=== PATIENT | female | born 1945 | race Caucasian/White ===

== ENCOUNTER → 2020-07-29 10:16 | Outpatient (CLI) | payer OTHER, SELFPAY ==
--- NOTE | ~2020-07-29 | DEXA_ITS ---
Bone Density Report Name: Elena Geronimo Age: 75 Sex: Female Ethnicity: White Date of : 1945 Indication: osteopenia; parental hip fracture; postmenopausal Referring Provider: GRIS MOMIN Study: Bone densitometry was performed. Exam Date: July 29, 2020 Accession number: [id number] Bone Density: Region BMD T-score Z-score Classification AP Spine (L1-L4) 0.858 -1.7 0.6 Osteopenia Femoral Neck (Left) 0.709 -1.3 0.7 Osteopenia Total Hip (Left) 0.930 -0.1 1.6 Normal Femoral Neck (Right) 0.704 -1.3 0.7 Osteopenia Total Hip (Right) 0.885 -0.5 1.2 Normal Total Hip Mean 0.908 -0.3 1.4 Normal World Health Organization criteria for BMD impression classify patients as: Normal (T-score at or above -1.0), Osteopenia (T-score between -1.0 and -2.5), or Osteoporosis (T-score at or below -2.5). 10-year Fracture Risk(1): Major Osteoporotic Fracture 15% Hip Fracture 4.8% Reported Risk Factors: [place] (), Neck BMD=0.704, BMI=32.5, parental fracture (1) FRAX(R) Version 3.08. Fracture probability calculated for an untreated patient. Fracture probability may be lower if the patient has received treatment. Previous Exams: Region Exam Age BMD T-score BMD Change BMD Change Date g/cm2 vs Baseline vs Previous AP Spine(L1-L4) 07/29/2020 75 0.858 -1.7 -0.030 0.017 11/25/2017 72 0.840 -1.9 -0.047* -0.011 09/12/2015 70 0.852 -1.8 -0.036 -0.051* 04/02/2010 64 0.903 -1.3 0.015 0.018 01/18/2008 62 0.885 -1.5 -0.002 -0.002 11/06/2005 60 0.887 -1.5 Total Hip(Left) 07/29/2020 75 0.930 -0.1 0.018 -0.045 11/25/2017 72 0.974 0.3 0.063* 0.021 09/12/2015 70 0.953 0.1 0.042 0.085* 04/02/2010 64 0.868 -0.6 -0.043 -0.090* 01/18/2008 62 0.958 0.1 0.047 0.047 11/06/2005 60 0.911 -0.3 Total Hip(Right) 07/29/2020 75 0.885 -0.5 -0.027 -0.111 11/25/2017 72 0.995 0.4 0.083* 0.027 09/12/2015 70 0.969 0.2 0.057 0.128* 04/02/2010 64 0.840 -0.8 -0.071 -0.047* 01/18/2008 62 0.888 -0.4 -0.024 -0.024 11/06/2005 60 0.912 -0.2 *Denotes significance at 95% confidence level, LSC for AP Spine = 0.022 g/cm2, LSC for Total Hip = 0.027 g/cm2 Clinical Information Provided by Patient:
--- NOTE | ~2020-07-29 | MM_ITS ---
EXAMINATION: MM screening farhat BI w shameka HISTORY: Screening mammogram TECHNIQUE: Craniocaudal and mediolateral oblique 3-D tomosynthesis images were obtained and synthetic 2-D images were generated. CAD analysis was submitted and interpreted. COMPARISON: 11/25/2017, 09/14/2016 bilateral digital screening mammogram examinations BREAST PARENCHYMAL COMPOSITION: There are scattered areas of fibroglandular density. FINDINGS: There is no evidence of suspicious mass, calcification, or architectural distortion to sugg est malignancy in either breast. There has been no suspicious interval change. IMPRESSION: 1. No mammographic evidence of malignancy. 2. Recommend routine screening mammography in one year. BI-RADS Category 1: Negative Reviewed, dictated and finalized at location A.
== END ==
PROVIDERS: PCP Emergency Medicine; Visit Provider Emergency Medicine
DX: Z12.31 Encounter for screening mammogram for malignant neoplasm of breast (principal); Z78.0 Asymptomatic menopausal state; M85.88 Other specified disorders of bone density and structure, other site; M85.852 Other specified disorders of bone density and structure, left thigh; M85.851 Other specified disorders of bone density and structure, right thigh
CPT/HCPCS: 77063; 77067; 77080

== ENCOUNTER → 2022-10-01 10:08 | Outpatient (CLI) | payer OTHER, SELFPAY ==
--- NOTE | ~2022-10-01 | MM_ITS ---
EXAMINATION: MM screening farhat BI w shameka HISTORY: Screening TECHNIQUE: Craniocaudal and mediolateral oblique 3-D tomosynthesis images were obtained and synthetic 2-D images were generated. CAD analysis was submitted and interpreted. COMPARISON: Comparison to multiple prior studies sequentially, with oldest reviewed study dated 04/2014. BREAST PARENCHYMAL COMPOSITION: There are scattered areas of fibroglandular density. FINDINGS: There is a cluster of calcifications in the central aspect of the right breast which have i ncreased in number and density compared with prior studies. The left breast is stable without eviden ce for malignancy. IMPRESSION: 1. Developing cluster of punctate calcifications in the central aspect of the right breast. 2. Magnification views are recommended. BI-RADS Category 0: Incomplete: Needs additional imaging evaluation. Reviewed, dictated and finalized at location A. ARY COOK IMPRESSION: 1. Developing cluster of punctate calcifications in the central aspect of the r ight breast. 2. Magnification views are recommended. BI-RADS Category 0: Incomplete: Needs additional imaging evaluation.
== END ==
PROVIDERS: PCP Emergency Medicine; Visit Provider Emergency Medicine
DX: Z12.31 Encounter for screening mammogram for malignant neoplasm of breast (principal); R92.8 Other abnormal and inconclusive findings on diagnostic imaging of breast
CPT/HCPCS: 77063; 77067

== ENCOUNTER → 2022-10-22 08:24 | Outpatient (CLI) | payer OTHER, SELFPAY ==
--- NOTE | ~2022-10-22 | MM_ITS ---
EXAMINATION: MM diagnostic mammo unilat RT HISTORY: Follow-up right breast calcifications TECHNIQUE: Additional 3-D tomosynthesis images of the right breast were performed and synthetic 2-D i mages were generated. CAD analysis was submitted and interpreted. COMPARISON: Comparison to multiple prior studies sequentially, with oldest reviewed study dated 12/2014. BREAST PARENCHYMAL COMPOSITION: Breast composed of scattered areas of fibroglandular density FINDINGS: There are clustered indeterminate calcifications in the central aspect of the right breast. There are no suspicious masses or architectural distortion. IMPRESSION: 1. Clustered indeterminate calcifications of the right breast located centrally. 2. Stereotactic right breast biopsy recommended. BI-RADS category 4, suspicious findings. Reviewed, dictated and finalized at location A. O MASK CLEANER IMPRESSION: 1. Clustered indeterminate calcifications of the right breast located centrally . 2. Stereotactic right breast biopsy recommended. BI-RADS category 4, suspicious findings.
== END ==
PROVIDERS: PCP Emergency Medicine; Visit Provider Emergency Medicine
DX: R92.1 Mammographic calcification found on diagnostic imaging of breast (principal)
CPT/HCPCS: 77065

== ENCOUNTER 2022-11-11 12:32 | Outpatient (CLI) | payer OTHER, SELFPAY ==
--- NOTE | ~2022-11-11 | MM_ITS ---
EXAMINATION: MM stereotactic bx RT, MM post biopsy diagnostic RT, MM stereotactic specimen RT INDICATION: Abnormal calcifications in the right breast. Stereotactic core biopsy is requested evalu ate for malignancy.] TECHNIQUE AND FINDINGS: The risks and potential benefits of the procedure were discussed with the patient and written informe d consent was obtained. The patient was placed in the prone position clustered at the table with the right breast in lateral compression, and the area of interest was localized and targeted utilizing d igital imaging with stereotaxis. After sterile preparation of the skin, 1% lidocaine was utilized for local anesthesia at the skin pun cture site and 1% lidocaine with epinephrine was utilized for deeper local anesthesia/is about the bi opsy site. A 9G [employer] vacuum assisted biopsy needle was advanced to the level of the calcification o f interest from a lateral approach utilizing stereotactic guidance and a total of 6 tissue core biops ies were obtained. A specimen radiograph demonstrates that the calcifications of interest are included within the tissue cores. A tissue marker clip was then placed at the biopsy site. The needle was removed and hemosta sis was achieved. The patient tolerated the procedure well and there is no evidence of significant i mmediate complication. The patient was given verbal as well as written postprocedural instructions p rior to discharge from the department. Tissue cores were submitted to surgical pathology for histolo gic analysis. A 2-view right unilateral digital mammogram was obtained post procedure and this demonstrates that th e tissue marker clip is in expected position.] IMPRESSION: 1. Successful stereotactic biopsy of calcifications in the upper aspect of the right breast, followe d by tissue marker clip placement. Please refer to pathology report for histologic analysis. Reviewed, dictated and finalized at location A. ORK RELATIONS CONSULTANT IMPRESSION: 1. Successful stereotactic biopsy of calcifications in the upper aspect of the right breast, followed by tissue marker clip placement. Please refer to patho logy report for histologic analysis. IMPRESSION: 1. Successful stereotactic biopsy of calcifications in the upper aspect of the right breast, followed by tissue marker clip placement. Please refer to patho logy report for histologic analysis.
== END 2022-11-11 12:33 | disposition home or self-care (01) ==
PROVIDERS: PCP Emergency Medicine; Visit Provider Surgery
DX: R92.1 Mammographic calcification found on diagnostic imaging of breast (principal)
CPT/HCPCS: 19081; 77065; 88305; A4648

== ENCOUNTER 2024-04-19 11:34 | Outpatient (CLI) | payer OTHER, SELFPAY ==
--- NOTE | ~2024-04-19 | XR_ITS ---
[id number] 04/19/2024 11:59 Indication: Left knee pain Procedure: 2 views left knee Comparison: No prior studies for comparison. Findings: There is anatomic alignment. No fracture, subluxation or dislocation. No joint effusion. Th ere is mild osteoarthritis. No foreign bodies. Impression: 1: Mild osteoarthritis of the left knee. Reviewed, dictated and finalized at location B. Impression: 1: Mild osteoarthritis of the left knee.
== END 2024-04-19 11:35 ==
LOC: MICIMG 11:36
PROVIDERS: PCP Emergency Medicine; Visit Provider Emergency Medicine
DX: M25.562 Pain in left knee (principal); M17.12 Unilateral primary osteoarthritis, left knee
CPT/HCPCS: 73560

== ENCOUNTER 2024-09-27 13:04 | Outpatient (CLI) | payer OTHER, SELFPAY ==
--- NOTE | ~2024-09-27 | MM_ITS ---
EXAMINATION: MM screening farhat BI w shameka HISTORY: Screening TECHNIQUE: Craniocaudal and mediolateral oblique 3-D tomosynthesis images were obtained and synthetic 2-D images were generated. CAD analysis was submitted and interpreted. COMPARISON: Comparison to multiple prior studies sequentially, with oldest reviewed study dated 07/11. BREAST PARENCHYMAL COMPOSITION: Not dense: There are scattered areas of fibroglandular density. FINDINGS: There is no evidence of suspicious mass, calcification, or architectural distortion to sugg est malignancy in either breast. There has been no suspicious interval change. IMPRESSION: 1. No mammographic evidence of malignancy. 2. Recommend routine screening mammography in one year. BI-RADS Category 1: Negative Reviewed, dictated and finalized at location B. ESTANT COORDINATOR
== END 2024-09-27 13:05 | disposition home or self-care (01) ==
LOC: MICIMG 13:05
PROVIDERS: PCP Emergency Medicine; Visit Provider Emergency Medicine
DX: Z12.31 Encounter for screening mammogram for malignant neoplasm of breast (principal)
CPT/HCPCS: 77063; 77067

== ENCOUNTER 2025-03-29 10:00 | Outpatient (CLI) | payer OTHER, SELFPAY ==
--- NOTE | ~2025-03-29 | US_ITS ---
EXAMINATION: US asp injection ganglion cyst DATE: 03/29/2025 11:38 INDICATION: Other specified disorders of synovium and tendon. TECHNIQUE: Multiple grayscale and Doppler ultrasound images of the left popliteal fossa were obtained were obtained. COMPARISON: None FINDINGS: There is no Carpenter's cyst. No abnormal masses or fluid collections identified at the site indicated by the patient has a palpable region of concern. This is located more centrally and cephalad at the pop liteal fossa and appears to correspond to a focally increased thickness of the subcutaneous fat witho ut a clearly encapsulated lipoma. The deeper popliteal artery and vein are normal in caliber. IMPRESSION: 1. No Carpenter's cyst and the planned cyst aspiration was canceled. 2. Papillary region of concern appears to correspond to a focally thickened subcutaneous fat without discrete lipoma or other abnormal masses or fluid collection. Reviewed, dictated and finalized at location B. IMPRESSION: 1. No Carpenter's cyst and the planned cyst aspiration was canceled. 2. Papillary region of concern appears to correspond to a focally thickened sub cutaneous fat without discrete lipoma or other abnormal masses or fluid collect ion.
== END 2025-03-29 10:01 | disposition home or self-care (01) ==
PROVIDERS: PCP Emergency Medicine; Visit Provider Nurse Practitioner Family
DX: M67.89 Other specified disorders of synovium and tendon, multiple sites (principal); M71.39 Other bursal cyst, multiple sites; M67.49 Ganglion, multiple sites
CPT/HCPCS: 20612

== ENCOUNTER 2025-04-03 08:44 | Outpatient (CLI) | payer OTHER, SELFPAY ==
--- NOTE | ~2025-04-03 | DEXA_ITS ---
Bone Density Report Name: FRANK RAMOS Age: 79 Sex: Female Ethnicity: White Date of : 1945 Indication: postmenopausal; screening for osteoporosis; parental hip fracture; height loss; Referring Provider: GRIS MOMIN Study: Bone densitometry was performed. Exam Date: April 03, 2025 Accession number: [id number] Bone Density: Region BMD T-score Z-score Classification AP Spine(L1-L4) 0.846 -1.8 0.7 Osteopenia Femoral Neck (Left) 0.649 -1.8 0.4 Osteopenia Total Hip (Left) 0.766 -1.4 0.5 Osteopenia Femoral Neck (Right) 0.646 -1.8 0.4 Osteopenia Total Hip (Right) 0.830 -0.9 1.0 Normal Total Hip Mean 0.798 -1.2 0.8 Osteopenia World Health Organization criteria for BMD impression classify patients as: Normal (T-score at or above -1.0), Osteopenia (T-score between -1.0 and -2.5), or Osteoporosis (T-score at or below -2.5). 10-year Fracture Risk(1): Major Osteoporotic Fracture 23% Hip Fracture 13% Reported Risk Factors: [place] (), Neck BMD=0.646, BMI=33.3, parental fracture (1) FRAX(R) Version 3.08. Fracture probability calculated for an untreated patient. Fracture probability may be lower if the patient has received treatment. Clinical Information Provided by Patient: Parent has had a hip fracture Has used the following medications: Vitamin D, Calcium Patient maximum height was 66 Menopause Age: 53 Onset of menses at age 16 Number of children 0 Impression: The patient has low bone mass, based on the Total Spine T-score. The patient has an estimated ten-year risk of hip fracture of 13% and an estimated ten-year risk of major fracture of 23%, based on the WHO FRAX algorithm. The patient has risk factors, including: parental hip fracture. Discussion: BONE DENSITY IS LOW AT ONE OR MORE SKELETAL SITES. THE PATIENT'S BMD AND CLINICAL RISK FACTORS CONTRIBUTE TO THIS PATIENT'S HIGH RISK OF FRACTURE. This patient's lowest T-score is low at one or more skeletal sites. It meets the World Health Organization's (WHO) criteria for ?low bone mass? (T-score between -1.0 and -2.5). The patient's 10-year risk of hip fracture and 10 year risk of a major osteoporotic fracture as calculated by FRAX exceeds the threshold where pharmacological therapy is recommended by the National Osteoporosis Foundation (NOF). However, all treatment decisions require clinical judgment and consideration of individual patient factors, including patient preferences, comorbidities, previous drug use, risk factors not captured in the FRAX model (e.g., frailty, falls, vitamin D deficiency, increased bone turnover, interval significant decline in bone density) and possible under or overestimation of fracture risk by FRAX. The patient should follow a healthful lifestyle (good nutrition with adequate calcium and vitamin D, and appropriate weight-bearing exercise). Follow-Up: Consider a repeat BMD and Vertebral Fracture Assessment (VFA) exam in 2 years or sooner if medically necessary, to reassess this patient's status. Reported by: LISA on 04/03/2025 9:23:00 AM. Reviewed, dictated and finalized at location A.
== END 2025-04-03 08:45 | disposition home or self-care (01) ==
PROVIDERS: PCP Emergency Medicine; Visit Provider Emergency Medicine
DX: M85.89 Other specified disorders of bone density and structure, multiple sites (principal); Z78.0 Asymptomatic menopausal state; E55.9 Vitamin D deficiency, unspecified
CPT/HCPCS: 77080